=== PATIENT | female | born 1960 | race Caucasian/White ===

== ENCOUNTER 2017-05-25 13:59 | Emergency (ER) | payer BC ==
[~2017-05-25] VITALS: Ht 165.1 cm; Wt 100.0 kg
[~2017-05-25 13:59] MED LIST: ACET325T33; ALPR0.5T6 PO; AMLO-145 PO; ASPI-535 PO; ATEN-51 PO; CALC500T12 PO; CHOL50009 PO; DICL75TA2 PO; DOCU100T PO; FENO160T13 PO; FOLI-49 PO; GABA300C16 PO; GLYB5TAB3 PO; HYDR-3010 PO; HYDR-3498 PO; LEVO88TA3 PO; LORA-408 PO; MAG355OR38 PO; MELO-109 PO; METF500T4 PO; MILN50TA PO; OMEP40CA6 PO; PARO40TA79 PO; RANI150C11 PO; SUCR1TAB56 PO; TRAM50TA2 PO; WARF5TAB72 PO
[2017-05-25 14:05] VITALS: Ht 165.1 cm; Wt 100.0 kg
[2017-05-25] MEDS ORDERED: VITA400C41 PO (14:39)
[2017-05-25] MEDS ORDERED: PRAV80TA27 PO (14:40)
[2017-05-25] MEDS ORDERED: FENO145T19 PO (14:40)
[2017-05-25] MEDS ORDERED: LEVO88TA3 PO (14:40)
[2017-05-25] MEDS ORDERED: RANI150T5 PO (14:41)
[2017-05-25] MEDS ORDERED: ATEN-51 PO (14:41)
[2017-05-25] MEDS ORDERED: METF500T4 PO (14:41)
[2017-05-25] MEDS ORDERED: CALC-277 PO (14:43)
[2017-05-25] MEDS ORDERED: WARF10TA PO (14:43)
[2017-05-25] MEDS ORDERED: GABA300C16 PO (14:44)
[2017-05-25] MEDS ORDERED: GLYB5TAB3 PO (14:44)
[2017-05-25] MEDS ORDERED: AMLO5TAB4 PO (14:45)
[2017-05-25] MEDS ORDERED: FAMO40TA52 PO (14:45)
[2017-05-25] MEDS ORDERED: LORAZEPAM 2 MG INJ IM ONE (15:00)
[2017-05-25] MEDS ORDERED: IBUPROFEN 600 MG TAB PO ONE (15:00)
--- NOTE | 2017-05-25 15:04 | RADRPT ---
PROCEDURE: XR Chest. CLINICAL INDICATION: Shortness of breath. TECHNIQUE: Single frontal view. COMPARISON: 11/18/2015. FINDINGS: The lungs are clear. The heart size is normal. There is no pleural effusion. There is no pneumothorax. IMPRESSION: 1. Normal chest radiograph. 2. No change from 11/18/2015. RPTAT: QQ .Levar Patricio MD, MD Date Time Electronically viewed and signed by .Levar Patricio MD, MD on 05/25/2017 15:04 .R/
[2017-05-25] MEDS ORDERED: IBUP-1542 PO (15:57)
--- NOTE | 2017-05-25 16:01 | ERD ---
ER Documentation Chief Complaint Date/Time DATE: 05/25/17 TIME: 15:59 Chief Complaint SOB SINCE YESTERDAY HPI 56-year-old woman triage or shortness of breath although upon my HPI the patient and her daughter who is at the bedside states she has bilateral lower costal margin pain which is sharp and on the left side radiates down the left arm. The pain has been constant 2 days, nonexertional and not associated with shortness of breath. The patient does suffer from intermittent chest pain and intermittent shortness of breath which usually resolves spontaneously. She has had no cough, no calf or leg swelling, no fevers or chills, no vomiting or diarrhea. ROS All systems reviewed and are negative except as per history of present illness. Medications Home Meds Active Scripts Ibuprofen* (Ibuprofen*) 600 Mg Tablet, 600 MG PO Q8 for PAIN AND/OR INFLAMMATION , #30 TAB Prov:JOURDAN WALSH MD 05/25/17 Reported Medications Amlodipine Besylate* (Norvasc*) 5 Mg Tablet, 5 MG PO DAILY, TAB 05/25/17 Famotidine* (Famotidine*) 40 Mg Tablet, 40 MG PO DAILY, #30 TAB 05/25/17 Gabapentin* (Gabapentin*) 300 Mg Capsule, 300 MG PO TID, #90 CAP 05/25/17 Glyburide* (Glyburide*) 5 Mg Tablet, 5 MG PO BID, #60 TAB 05/25/17 Calcium Carbonate/Vitamin D3 ([place] 500 MG + VIT D TB) 1 Each Tablet, 1 EACH PO BID, TAB 05/25/17 Warfarin Sodium* (Coumadin*) 10 Mg Tablet, 10 MG PO DAILY, TAB TAKE 1TAB FOR 2 DAYS AND AFTER 1/2 TABS DAILY 05/25/17 Atenolol* (Atenolol*) 25 Mg Tablet, 25 MG PO DAILY, #30 TAB 05/25/17 Metformin Hcl* (Metformin Hcl*) 500 Mg Tablet, 500 MG PO WITH BREAKFAST DINNE, # 60 TAB 05/25/17 Ranitidine Hcl* (Ranitidine Hcl*) 150 Mg Tablet, 150 MG PO Q12, #60 TAB 05/25/17 Levothyroxine Sodium* (Levothyroxine Sodium*) 88 Mcg Tablet, 88 MCG PO BEFORE BREAKFAST, #30 TAB 05/25/17 Pravastatin Sodium* (Pravastatin Sodium*) 80 Mg Tablet, 80 MG PO DAILY, TAB 05/25/17 Fenofibrate Nanocrystallized* (Fenofibrate*) 145 Mg Tablet, 145 MG PO DAILY, TAB 05/25/17 Vitamin E Mixed* (Vitamin E*) 400 Unit Capsule, 800 UNIT PO DAILY, CAP 05/25/17 Discontinued Reported Medications Warfarin Sodium* (Coumadin*) 5 Mg Tablet, 5 MG PO DAILY, TAB 11/18/15 Omeprazole* (Omeprazole*) 40 Mg Capsule.dr, 40 MG PO DAILY, #30 CAP 11/18/15 Paroxetine Hcl* (Paroxetine*) 40 Mg Tablet, 40 MG PO DAILY, TAB 11/18/15 Hydrocodone Bit-Acetaminophen* (Hydrocodone-APAP*) 5-325 Tablet, 1 TAB PO Q12 Y for PAIN LEVEL 1-5, TAB 07/13/14 Meloxicam* (Meloxicam*) 7.5 Mg Tablet, 7.5 MG PO BID, TAB 07/13/14 Hydroxyzine Hcl* (Hydroxyzine Hcl*) 10 Mg Tablet, 10 MG PO DAILY Y for ITCHING, TAB 07/13/14 Alprazolam* (Alprazolam*) 0.5 Mg Tablet, 0.5 MG PO HS Y for ANXIETY, TAB 07/13/14 Glyburide* (Glyburide*) 5 Mg Tablet, 5 MG PO BID, TAB 07/13/14 Metformin Hcl* (Metformin Hcl*) 500 Mg Tablet, 500 MG PO BID, TAB 07/13/14 Folic Acid* (Folic Acid*) 1 Mg Tablet, 1 MG PO DAILY, TAB 07/13/14 Calcium Carbonate* ([place]-500*) 1 Tab Tablet, 1 TAB PO BID, TAB 07/13/14 Fenofibrate, Micronized* (Fenofibrate*) 160 Mg Tablet, 160 MG PO DAILY, TAB 07/13/14 Gabapentin* (Gabapentin*) 300 Mg Capsule, 300 MG PO BID, CAP 07/13/14 Mag Hydrox/Al Hydrox/Simeth (Mintox Suspension) 355 Ml Oral.susp, 30 ML PO TID 07/13/14 Sucralfate* (Carafate*) 1 Gm Tab, 1 GM PO Q6, TAB 07/13/14 Cholecalciferol* (Vitamin D*) 5,000 Unit Tablet, 5000 UNIT PO DAILY, TAB 07/13/14 Docusate Sodium* (Dok*) 100 Mg Tablet, 100 MG PO BID, CAP 07/13/14 Diclofenac Sodium* (Diclofenac Sodium*) 75 Mg Tablet.dr, PO BID 10/20/11 Amlodipine Besylate* (Amlodipine Besylate*) 5 Mg Tablet, 5 MG PO DAILY 08/21/11 Atenolol* (Atenolol*) 25 Mg Tablet, 25 MG PO DAILY 08/21/11 Lorazepam (Ativan) 1 Mg Tablet, 1 MG PO TID Y FOR ANXIIETY 08/20/11 Ranitidine Hcl (Ranitidine Hcl) 150 Mg Capsule, 1 TAB PO DAILY 05/02/11 Levothyroxine Sodium* (Levothyroxine Sodium*) 88 Mcg Tablet, 1 TAB PO DAILY 05/02/11 Milnacipran Hcl (Savella) 50 Mg Tablet, 1 TAB PO BID 05/02/11 Tramadol HCl (Tramadol HCl) 50 Mg Tablet, 1 TAB PO TID 05/02/11 Aspirin Ec (Aspir 81) 81 Mg Tablet.dr, 81 TAB PO DAILY 05/02/11 Gabapentin* (Gabapentin*) 300 Mg Capsule, 1 CAP PO HS 05/02/11 Discontinued Scripts Acetaminophen* (Tylenol*) 325 Mg Tablet, 2 TAB .ROUTE Q6 Y for PAIN AND OR ELEVATED TEMP, #30 TAB Prov:JUAN PABLO CHATMAN MD 11/18/15 Allergies Allergies: Coded Allergies: No Known Drug Allergy (Verified Allergy, Unknown, 05/25/17) PMhx/Soc Recurrent chest pain, anxiety, hypertension, diabetes, depression, hypothyroidism, gastroesophageal reflux disease, obesity History of Surgery: Yes (thyroid, cancer surgery) Anesthesia Reaction: No Hx Neurological Disorder: No Hx Respiratory Disorders: No Hx Cardiac Disorders: Yes (HTN) Hx Psychiatric Problems: No Hx Miscellaneous Medical Probl: Yes (thyroid disorder, diabetes) Hx Alcohol Use: No Hx Substance Use: No Hx Tobacco Use: No FmHx Family History: No diabetes Physical Exam Vitals Vital Signs Date Time Temp Pulse Resp B/P Pulse Ox O2 Delivery O2 Flow Rate FiO2 05/25/17 17:05 98.1 76 16 133/74 96 Room Air 05/25/17 14:05 98.1 80 20 153/70 97 Physical Exam GENERAL: Well-developed, well-nourished, appears anxious HEENT: Moist mucous membranes, pink conjunctiva, no cervical spine tenderness or step-off deformities, no goiter, no jaundice or icterus, extraocular movements intact without pain. No submandibular induration, and no pharyngeal erythema NEURO: Alert and oriented 3, cranial nerves II through XII intact bilaterally, pupils equal round reactive to light, no focal deficits or facial asymmetry, sensation intact distally Strength 5/5 in upper and lower extremities bilaterally CARDIAC: Regular rate and rhythm, no murmurs rubs or gallops LUNGS: Clear bilaterally no wheezing crackles or stridor ABDOMEN: Soft nontender, no guarding, no rigidity, no rebound, no psoas sign no obturator sign. Normoactive bowel sounds SKIN: Warm and dry to touch, no abrasions, contusions, or hematomas, no lacerations, no ecchymosis, no target lesions, and without ulcers EXTREMITIES: No clubbing cyanosis or edema, calves are bilaterally symmetrical, no Homans sign, no popliteal cord sign. 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 One AP view of the chest performed, read by me reveals no acute infiltrates, normal mediastinum, sharp costophrenic and cardiac borders, no air under the diaphragm. Otherwise unremarkable chest x-ray. EKG performed, read by me: 80 bpm, normal sinus rhythm, normal axis, no acute ST segment changes, narrow QRS complex, with good R-wave progression in precordial leads. Troponin was negative. I administered lorazepam 0.5 mg intramuscular injection and ibuprofen 600 mg p.o. Symptoms resolved. Differential diagnoses considered, included but not limited to acute coronary syndrome, pulmonary embolism, aortic dissection, abdominal aortic aneurysm, sepsis, stroke, meningitis, encephalitis, pneumonia, appendicitis, cholecystitis , bowel obstruction, pyelonephritis, nephrolithiasis, cystitis, as well as metabolic, hematologic, and electrolyte abnormalities. As well as abscess, cellulitis, fractures, and dislocations. Patient feels much better at this time, and vital signs are normal, symptoms have improved. I did give strict instructions to return to the ED if symptoms continue or worsen, patient will otherwise follow-up with primary care physician. Patient understood instructions and agreed to plan. Disclaimer: Inadvertent spelling and grammatical errors are likely due to EHR/ dictation software use and do not reflect on the overall quality of patient care. Also, please note that the electronic time recorded on this note does not necessarily reflect the actual time of the patient encounter. Departure Diagnosis: Primary Impression: Chest wall pain Additional Impression: Chronic pain syndrome Condition: Good Patient Instructions: Chest Wall Pain, Costochondritis JOURDAN WALSH MD May 25, 2017 16:01
[2017-05-25 17:05] VITALS: BP 133/74; PULSE 76; RESP 16; TEMP 98.1
== END 2017-05-25 17:05 | disposition home or self-care (01) ==
LOC: E/R 13:59
DX: R07.89 Other chest pain (principal); G89.4 Chronic pain syndrome; I10 Essential (primary) hypertension; E11.9 Type 2 diabetes mellitus without complications; E03.9 Hypothyroidism, unspecified; E66.9 Obesity, unspecified; Z68.36 Body mass index [BMI] 36.0-36.9, adult; Z85.850 Personal history of malignant neoplasm of thyroid; Z79.82 Long term (current) use of aspirin; Z79.84 Long term (current) use of oral hypoglycemic drugs; Z79.01 Long term (current) use of anticoagulants
CPT/HCPCS: 71010; 84484; 93005; 96372; J2060; Z7502; Z7610

== ENCOUNTER 2017-06-28 21:25 | Emergency (ER) | payer BC ==
[~2017-06-28] VITALS: Ht 165.1 cm; Wt 100.0 kg
[~2017-06-28 21:25] MED LIST changes: -ACET325T33; -ALPR0.5T6 PO; -AMLO-145 PO; +AMLO5TAB4 PO; -ASPI-535 PO; +CALC-277 PO; -CALC500T12 PO; -CHOL50009 PO; -DICL75TA2 PO; -DOCU100T PO; +FAMO40TA52 PO; +FENO145T19 PO; -FENO160T13 PO; -FOLI-49 PO; -HYDR-3010 PO; -HYDR-3498 PO; +IBUP-1542 PO; -LORA-408 PO; -MAG355OR38 PO; -MELO-109 PO; -MILN50TA PO; -OMEP40CA6 PO; -PARO40TA79 PO; +PRAV80TA27 PO; -RANI150C11 PO; +RANI150T5 PO; -SUCR1TAB56 PO; -TRAM50TA2 PO; +VITA400C41 PO; +WARF10TA PO; -WARF5TAB72 PO
[2017-06-28 21:31] VITALS: Ht 165.1 cm; Wt 100.0 kg
[2017-06-28] MEDS ORDERED: SOD CHLORIDE 0.9% 500 ML IV STA (23:19)
[2017-06-28] MEDS ORDERED: ONDANSETRON 4 MG INJ IV STA (23:19)
[2017-06-28] MEDS ORDERED: morphine 4 MG/ML VIAL IV STA (23:19)
[2017-06-29 00:05] LABS: BASOPHILS % 0.2 % (0.0-2.0); EOSINOPHILS # 0.2 10^3/ul (0.0-0.5); EOSINOPHILS % 2.8 % (0.0-7.0); HEMATOCRIT 31.4 % (37.0-47.0); HEMOGLOBIN 10.5 g/dl (12.0-16.0); LYMPHOCYTES # 1.8 10^3/ul (0.8-2.9); LYMPHOCYTES % 30.9 % (15.0-51.0); MEAN CORPUSCULAR HEMOGLOBIN 29.9 pg (29.0-33.0); MEAN CORPUSCULAR HGB CONC 33.4 g/dl (32.0-37.0); MEAN CORPUSCULAR VOLUME 89.5 fl (82.0-101.0); MEAN PLATELET VOLUME 11.4 fl (7.4-10.4); MONOCYTE # 0.6 10^3/ul (0.3-0.9); MONOCYTES % 9.9 % (0.0-11.0); NEUTROPHIL # 3.2 10^3/ul (1.6-7.5); NEUTROPHILS % 55.7 % (39.0-77.0); PLATELET COUNT 205 10^3/UL (140-415); RED BLOOD COUNT 3.51 10^6/ul (4.20-5.40); RED CELL DISTRIBUTION WIDTH 13.3 % (11.5-14.5); WHITE BLOOD COUNT 5.7 10^3/ul (4.8-10.8)
[2017-06-29 00:21] LABS: PT RATIO 5.3
[2017-06-29 00:25] LABS: ALBUMIN 4.2 g/dl (3.3-4.9); ALBUMIN/GLOBULIN RATIO 1.31; BILIRUBIN,INDIRECT 0.1 mg/dl (0-1.1); BILIRUBIN,TOTAL 0.1 mg/dl (0.2-1.3); CALCIUM 9.7 mg/dl (8.4-10.2); CREATININE 0.79 mg/dl (0.44-1.00); POTASSIUM 3.7 mmol/L (3.5-5.1); TOTAL PROTEIN 7.4 g/dl (6.1-8.1)
[2017-06-29] MEDS ORDERED: MELO-110 PO (00:49)
[2017-06-29] MEDS ORDERED: CHOL500010 PO (00:49)
[2017-06-29 00:53] LABS: PROTIME 68.4 Sec (12.2-14.2)
[2017-06-29 00:54] LABS: INR 7.94; PARTIAL THROMBOPLASTIN TIME 103.9 Sec (25.0-35.0)
[2017-06-29] MEDS ORDERED: morphine 4 MG/ML VIAL IV STA (01:56)
[2017-06-29] MEDS ORDERED: PHYTONADIONE (1 MG/ML PO SYG) PO ONE (02:00)
[2017-06-29] MEDS ORDERED: HYDR-906 PO (03:42)
--- NOTE | 2017-06-29 03:51 | ERD ---
ER Documentation Chief Complaint Date/Time DATE: 06/29/17 TIME: 03:46 Chief Complaint c/o neck, left arm, left leg pain with bruising. On Coumadin HPI This 56-year-old female comes in with her daughter for having pain and bruising in various parts of the left side of her body. She has had no specific trauma no falls, no known trauma. However she does have bruises. She is taking Coumadin for pulmonary embolism that she had 9 months ago. She has no current shortness of breath. ROS All systems reviewed and are negative except as per history of present illness. Medications Home Meds Active Scripts Hydrocodone/Acetaminophen ([place] 5-325 Tablet) 1 Each Tablet, 1 EACH PO Q6 for PAIN, #20 TAB Prov:CATHY ROMERO DO 06/29/17 Ibuprofen* (Ibuprofen*) 600 Mg Tablet, 600 MG PO Q8 for PAIN AND/OR INFLAMMATION , #30 TAB Prov:JOURDAN WALSH MD 05/25/17 Reported Medications Meloxicam* (Mobic*) 15 Mg Tablet, 15 MG PO DAILY, #30 TAB 06/29/17 Cholecalciferol (Vitamin D3) 5,000 Unit Tablet, 5000 UNIT PO DAILY, TAB 06/29/17 Amlodipine Besylate* (Norvasc*) 5 Mg Tablet, 5 MG PO DAILY, TAB 05/25/17 Famotidine* (Famotidine*) 40 Mg Tablet, 40 MG PO DAILY, #30 TAB 05/25/17 Gabapentin* (Gabapentin*) 300 Mg Capsule, 300 MG PO TID, #90 CAP 05/25/17 Glyburide* (Glyburide*) 5 Mg Tablet, 5 MG PO BID, #60 TAB 05/25/17 Calcium Carbonate/Vitamin D3 ([place]LL 500 MG + VIT D TB) 1 Each Tablet, 1 EACH PO BID, TAB 05/25/17 Warfarin Sodium* (Coumadin*) 10 Mg Tablet, 10 MG PO DAILY, TAB TAKE 1TAB FOR 2 DAYS AND AFTER 1/2 TABS DAILY 05/25/17 Atenolol* (Atenolol*) 25 Mg Tablet, 25 MG PO DAILY, #30 TAB 05/25/17 Metformin Hcl* (Metformin Hcl*) 500 Mg Tablet, 500 MG PO WITH BREAKFAST DINNE, # 60 TAB 05/25/17 Levothyroxine Sodium* (Levothyroxine Sodium*) 88 Mcg Tablet, 88 MCG PO BEFORE BREAKFAST, #30 TAB 05/25/17 Pravastatin Sodium* (Pravastatin Sodium*) 80 Mg Tablet, 80 MG PO DAILY, TAB 05/25/17 Fenofibrate Nanocrystallized* (Fenofibrate*) 145 Mg Tablet, 145 MG PO DAILY, TAB 05/25/17 Vitamin E Mixed* (Vitamin E*) 400 Unit Capsule, 800 UNIT PO DAILY, CAP 05/25/17 Discontinued Reported Medications Ranitidine Hcl* (Ranitidine Hcl*) 150 Mg Tablet, 150 MG PO Q12, #60 TAB 05/25/17 Allergies Allergies: Coded Allergies: No Known Drug Allergy (Verified Allergy, Unknown, 05/25/17) PMhx/Soc History of Surgery: Yes (thyroid surgery) Anesthesia Reaction: No Hx Neurological Disorder: No Hx Respiratory Disorders: No Hx Cardiac Disorders: Yes (HTN) Hx Psychiatric Problems: No Hx Miscellaneous Medical Probl: Yes (diabetes) Hx Alcohol Use: No Hx Substance Use: No Hx Tobacco Use: No Smoking Status: Never smoker Physical Exam Vitals Vital Signs Date Time Temp Pulse Resp B/P Pulse Ox O2 Delivery O2 Flow Rate FiO2 06/29/17 02:58 62 16 104/65 99 Room Air 06/28/17 21:31 98.8 69 20 127/63 98 Physical Exam Const: [] Mild distress Head: Atraumatic Eyes: Normal Conjunctiva, EOMI, PRL ENT: Normal External Ears, Nose and Mouth. Neck: Full range of motion..~ No meningismus. Left upper trapezius muscle spasm, no paraspinal muscle tenderness or midline tenderness Resp: Clear to auscultation bilaterally Cardio: Regular rate and rhythm, no murmurs Abd: Soft, non tender, non distended. Normal bowel sounds Skin: Bruising as described. Back: No midline or flank tenderness Ext: No cyanosis, or edema, left upper arm and left forearm with greenish and yellowish colored bruising. Tenderness to the areas of the bruises. No painful range of motion of the elbow wrist or hand. Left anterior quadriceps area and upper with some bruising and per purple/green discoloration. Small bruise on anterior left knee approximately 2 x 2 centimeters the cause of the patient have pain and tenderness at that location. She is able to move the leg with no difficulties. Distal pulses intact all 4 extremities. Neur: Awake and alert and oriented 3, no focal deficits Psych: Normal Mood and Affect Result Diagram: 06/28/17 2330 06/28/17 2330 Results 24 hrs Laboratory Tests Test 06/28/17 23:30 White Blood Count 5.710^3/ul Red Blood Count 3.5110^6/ul Hemoglobin 10.5g/dl Hematocrit 31.4% Mean Corpuscular Volume 89.5fl Mean Corpuscular Hemoglobin 29.9pg Mean Corpuscular Hemoglobin Concent 33.4g/dl Red Cell Distribution Width 13.3% Platelet Count 51491^3/UL Mean Platelet Volume 11.4fl Neutrophils % 55.7% Lymphocytes % 30.9% Monocytes % 9.9% Eosinophils % 2.8% Basophils % 0.2% Nucleated Red Blood Cells % 0.0/100WBC Neutrophils # 3.210^3/ul Lymphocytes # 1.810^3/ul Monocytes # 0.610^3/ul Eosinophils # 0.210^3/ul Basophils # 0.010^3/ul Nucleated Red Blood Cells # 0.010^3/ul Prothrombin Time 68.4Sec Prothrombin Time Ratio 5.3 INR International Normalized Ratio 7.94 Activated Partial Thromboplast Time 103.9Sec Sodium Level 141mmol/L Potassium Level 3.7mmol/L Chloride Level 96mmol/L Carbon Dioxide Level 28mmol/L Anion Gap 21 Blood Urea Nitrogen 13mg/dl Creatinine 0.79mg/dl Glucose Level 180mg/dl Calcium Level 9.7mg/dl Total Bilirubin 0.1mg/dl Direct Bilirubin 0.00mg/dl Indirect Bilirubin 0.1mg/dl Aspartate Amino Transf (AST/SGOT) 22IU/L Alanine Aminotransferase (ALT/SGPT) 28IU/L Alkaline Phosphatase 40IU/L Total Protein 7.4g/dl Albumin 4.2g/dl Globulin 3.20g/dl Albumin/Globulin Ratio 1.31 Current Medications Medications (Trade) Dose Ordered Sig/Jagjit Route PRN Reason Start Time Stop Time Status Last Admin Dose Admin Sodium Chloride (NS) 500 ml @ 500 mls/hr Q1H STAT IV 06/28/17 23:19 06/29/17 00:18 DC 06/29/17 00:30 Morphine Sulfate (morphine) 4 mg ONCE STAT IV 06/28/17 23:19 06/28/17 23:23 DC 06/29/17 00:29 Ondansetron HCl (Zofran Inj) 4 mg ONCE STAT IV 06/28/17 23:19 06/28/17 23:23 DC 06/29/17 00:29 Morphine Sulfate (morphine) 4 mg ONCE STAT IV 06/29/17 01:56 06/29/17 01:58 DC 06/29/17 02:28 Phytonadione (Vitamin K Soln) 10 mg ONCE ONCE PO 06/29/17 02:00 06/29/17 02:02 DC 06/29/17 02:28 Procedures/MDM Coumadin coagulopathy with easy bruising and tenderness at bruise sites. Patient has no active bleeding. When he is not in areas where I would expect internal bruising. No signs of compartment syndrome and any bruise site. Patient was given IV morphine which did diminish her pain significantly to the point she could move with comfort. INR is 7.9. Administered single 10 mg p.o. dose of vitamin K. Patient has an appointment to see her physician tomorrow I have instructed her not to take anymore Coumadin until her physician says to do so. Given return precautions the emergency room for any fall in which the patient hits her head or any trauma. Instructed the patient and the daughter to take extreme precautions that she does not fall while her INR is that high. Departure Diagnosis: Primary Impression: Bruising Additional Impression: Supratherapeutic INR Condition: Stable Patient Instructions: Contusions (Bruises) Additional Instructions: Call your primary care doctor TOMORROW for a SAME-DAY APPOINTMENT.Tell the private secretary that you were referred from this facility.Call again if your condition worsens before your appointment time. CATHY ROMERO DO Jun 29, 2017 03:50
[2017-06-29 04:12] VITALS: BP 121/72; PULSE 76; RESP 18
== END 2017-06-29 04:13 | disposition home or self-care (01) ==
LOC: E/R 21:25
DX: M79.81 Nontraumatic hematoma of soft tissue (principal); R79.1 Abnormal coagulation profile; E11.9 Type 2 diabetes mellitus without complications; I10 Essential (primary) hypertension; Z79.01 Long term (current) use of anticoagulants; Z79.84 Long term (current) use of oral hypoglycemic drugs
CPT/HCPCS: 36415; 80053; 85025; 85610; 85730; 96374; 96375; 96376; J2270; J2405; J3430; J7040; Z7502

== ENCOUNTER 2017-07-21 18:32 | Emergency (ER) | payer BC ==
[~2017-07-21] VITALS: Ht 162.6 cm; Wt 88.0 kg
[~2017-07-21 18:32] MED LIST changes: +CHOL500010 PO; +HYDR-906 PO; +MELO-110 PO; -RANI150T5 PO
[2017-07-21 18:55] VITALS: Ht 162.6 cm; Wt 88.0 kg
--- NOTE | 2017-07-21 23:39 | ERA ---
ER Documentation Chief Complaint Date/Time DATE: 07/21/17 TIME: 23:38 Chief Complaint Shortness of breath HPI The patient is a 56-year-old female, presenting to the ER because of shortness of breath, sore throat, intermittent cough for 1 day, it is worse with deep breathing. She is under a lot of stress, very emotional in the emergency department she has similar symptoms previously, denies bruit fever, chills, neck pain, chest pain with exertion or vomiting or diaphoresis, denies abdominal pain, vomiting, dysuria, diarrhea. She does not smoke nor drink, has a lot of stress in her life Past medical history: Hypertension, diabetes mellitus, hypothyroidism, depression, history of pulmonary embolism Past surgical history: Thyroid surgery ROS All systems reviewed and are negative except as per history of present illness. Medications Home Meds Active Scripts Ciprofloxacin Hcl* (Ciprofloxacin Hcl*) 500 Mg Tablet, 500 MG PO BID for 7 Days , TAB Prov:SORAIDA COOK MD 07/22/17 Hydrocodone/Acetaminophen ([place] 5-325 Tablet) 1 Each Tablet, 1 EACH PO Q6 for PAIN, #20 TAB Prov:CATHY ROMERO DO 06/29/17 Ibuprofen* (Ibuprofen*) 600 Mg Tablet, 600 MG PO Q8 for PAIN AND/OR INFLAMMATION , #30 TAB Prov:JOURDAN WALSH MD 05/25/17 Reported Medications Meloxicam* (Mobic*) 15 Mg Tablet, 15 MG PO DAILY, #30 TAB 06/29/17 Cholecalciferol (Vitamin D3) 5,000 Unit Tablet, 5000 UNIT PO DAILY, TAB 06/29/17 Amlodipine Besylate* (Norvasc*) 5 Mg Tablet, 5 MG PO DAILY, TAB 05/25/17 Famotidine* (Famotidine*) 40 Mg Tablet, 40 MG PO DAILY, #30 TAB 05/25/17 Gabapentin* (Gabapentin*) 300 Mg Capsule, 300 MG PO TID, #90 CAP 05/25/17 Glyburide* (Glyburide*) 5 Mg Tablet, 5 MG PO BID, #60 TAB 05/25/17 Calcium Carbonate/Vitamin D3 ([place] 500 MG + VIT D TB) 1 Each Tablet, 1 EACH PO BID, TAB 05/25/17 Warfarin Sodium* (Coumadin*) 10 Mg Tablet, 10 MG PO DAILY, TAB TAKE 1TAB FOR 2 DAYS AND AFTER 1/2 TABS DAILY 05/25/17 Atenolol* (Atenolol*) 25 Mg Tablet, 25 MG PO DAILY, #30 TAB 05/25/17 Metformin Hcl* (Metformin Hcl*) 500 Mg Tablet, 500 MG PO WITH BREAKFAST DINNE, # 60 TAB 05/25/17 Levothyroxine Sodium* (Levothyroxine Sodium*) 88 Mcg Tablet, 88 MCG PO BEFORE BREAKFAST, #30 TAB 05/25/17 Pravastatin Sodium* (Pravastatin Sodium*) 80 Mg Tablet, 80 MG PO DAILY, TAB 05/25/17 Fenofibrate Nanocrystallized* (Fenofibrate*) 145 Mg Tablet, 145 MG PO DAILY, TAB 05/25/17 Vitamin E Mixed* (Vitamin E*) 400 Unit Capsule, 800 UNIT PO DAILY, CAP 05/25/17 Allergies Allergies: Coded Allergies: No Known Drug Allergy (Verified Allergy, Unknown, 05/25/17) PMhx/Soc History of Surgery: Yes (thyroid surgery) Anesthesia Reaction: No Hx Neurological Disorder: No Hx Respiratory Disorders: No Hx Cardiac Disorders: Yes (HTN) Hx Psychiatric Problems: No Hx Miscellaneous Medical Probl: Yes (diabetes) Hx Alcohol Use: No Hx Substance Use: No Hx Tobacco Use: No Physical Exam Vitals Vital Signs Date Time Temp Pulse Resp B/P Pulse Ox O2 Delivery O2 Flow Rate FiO2 07/22/17 03:30 98.9 68 20 103/59 97 Room Air 07/21/17 23:27 98.9 62 20 124/64 99 Room Air 07/21/17 18:55 98.9 69 20 130/77 97 Physical Exam Const: No acute distress.Very anxious Head: Atraumatic. Eyes: Normal Conjunctiva. ENT: Normal External Ears, Nose and Mouth. oropharynx is within normal limits Neck: Full range of motion. No meningismus. Resp: Clear to auscultation bilaterally. Cardio: Regular rate and rhythm. Abd: Soft, non distended, normal bowel sounds, non tender. Skin: No petechiae or rashes. Back: No midline or flank tenderness. Ext: No cyanosis, or edema. Neur: Awake and alert. No focal deficit Psych: Normal Mood and Affect. Result Diagram: 07/21/17 2345 07/21/17 2349 Results 24 hrs Laboratory Tests Test 07/21/17 23:45 07/22/17 01:17 White Blood Count 6.910^3/ul Red Blood Count 3.9610^6/ul Hemoglobin 11.8g/dl Hematocrit 36.0% Mean Corpuscular Volume 90.9fl Mean Corpuscular Hemoglobin 29.8pg Mean Corpuscular Hemoglobin Concent 32.8g/dl Red Cell Distribution Width 13.4% Platelet Count 70954^3/UL Mean Platelet Volume 11.4fl Neutrophils % 53.8% Lymphocytes % 36.4% Monocytes % 7.7% Eosinophils % 1.3% Basophils % 0.4% Nucleated Red Blood Cells % 0.0/100WBC Neutrophils # (Manual) 3.710^3/ul Lymphocytes # 2.510^3/ul Monocytes # 0.510^3/ul Eosinophils # 0.110^3/ul Basophils # 0.010^3/ul Nucleated Red Blood Cells # 0.010^3/ul Prothrombin Time 24.1Sec Prothrombin Time Ratio 1.9 INR International Normalized Ratio 2.14 Activated Partial Thromboplast Time 37.2Sec Sodium Level 139mmol/L Potassium Level 4.2mmol/L Chloride Level 98mmol/L Carbon Dioxide Level 28mmol/L Anion Gap 17 Blood Urea Nitrogen 18mg/dl Creatinine 0.85mg/dl Glucose Level 201mg/dl Calcium Level 10.2mg/dl Troponin I < 0.012ng/ml Bedside Urine pH (LAB) 5.0 Bedside Urine Protein (LAB) Negative Bedside Urine Glucose (UA) Negative Bedside Urine Ketones (LAB) Negative Bedside Urine Blood Negative Bedside Urine Nitrite (LAB) Negative Bedside Urine Leukocyte Esterase (L 1+ Current Medications Medications (Trade) Dose Ordered Sig/Jagjit Route PRN Reason Start Time Stop Time Status Last Admin Dose Admin Alprazolam (Xanax) 0.5 mg ONCE ONCE PO 07/22/17 01:00 07/22/17 01:01 DC 07/22/17 01:03 Procedures/[place] [id number] Radiology Main Line: [phone] DIAGNOSTIC IMAGING REPORT Patient: ROBERTO AVLAREZ : 1960 Age: 56 Sex: F MR #: [id number] DOS: 07/21/17 1266 Ordering MD: SORAIDA COOK MD Location: E/R Room/Bed: PROCEDURE: Portable chest x-ray. CLINICAL INDICATION: Chest pain. TECHNIQUE: Portable AP view of the chest. COMPARISON: 05/25/2017 FINDINGS: No pulmonary edema or conolidation is identified. The cardiac silhouette is magnified. There are aortic calcifications. No pleural effusion is seen. There is no pneumothorax. IMPRESSION: 1. No evidence of acute cardiopulmonary disease. 2. Aortic atherosclerosis. RPTAT: HTAR .Servando Alford MD, MD Date Time Electronically viewed and signed by .Servando Alford MD, MD on 07/22/2017 02:09 .R/ CC: SORAIDA COOK MD EKG: At 1857 hrs. Read by emergency physician Rate/Rhythm: Normal Sinus Rhythm 70 beats/min QRS, ST, T-waves: No ST elevation, no T inversion, low voltage Impression: Abnormal EKG EKG: At 1:01 AM Read by emergency physician Rate/Rhythm: Normal Sinus Rhythm 61 beats/min QRS, ST, T-waves: No ST elevation, no T inversion Impression: Normal EKG . MEDICAL MAKING DECISION: The patient is a 56-year-old female, presenting with acute anxiety, acute cystitis. She was treated with Xanax 0.5 mg p.o. for acute anxiety with good response. X The differential diagnoses considered include but are not limited to acute coronary syndrome, acute myocardial infarction, pericarditis, pulmonary embolism , aortic dissection, pneumonia, pleural effusion, pneumothorax, GERD, chest wall pain. Departure Diagnosis: Primary Impression: Anxiety Additional Impression: UTI (urinary tract infection) Condition: Good Comments She was discharged with Cipro I discussed the findings with the patient. I advised the patient to follow-up with the primary physician in about 1-2 days, sooner if needed and return if any concern. SORAIDA COOK MD Jul 21, 2017 23:39
[2017-07-22 00:43] LABS: BASOPHILS % 0.4 % (0.0-2.0); EOSINOPHILS # 0.1 10^3/ul (0.0-0.5); EOSINOPHILS % 1.3 % (0.0-7.0); HEMOGLOBIN 11.8 g/dl (12.0-16.0); LYMPHOCYTES # 2.5 10^3/ul (0.8-2.9); LYMPHOCYTES % 36.4 % (15.0-51.0); MEAN CORPUSCULAR HEMOGLOBIN 29.8 pg (29.0-33.0); MEAN CORPUSCULAR HGB CONC 32.8 g/dl (32.0-37.0); MEAN CORPUSCULAR VOLUME 90.9 fl (82.0-101.0); MEAN PLATELET VOLUME 11.4 fl (7.4-10.4); MONOCYTE # 0.5 10^3/ul (0.3-0.9); MONOCYTES % 7.7 % (0.0-11.0); NEUTROPHILS % 53.8 % (39.0-77.0); PLATELET COUNT 240 10^3/UL (140-415); RED BLOOD COUNT 3.96 10^6/ul (4.20-5.40); RED CELL DISTRIBUTION WIDTH 13.4 % (11.5-14.5); WHITE BLOOD COUNT 6.9 10^3/ul (4.8-10.8)
[2017-07-22 01:00] LABS: PARTIAL THROMBOPLASTIN TIME 37.2 Sec (25.0-35.0); PT RATIO 1.9
[2017-07-22] MEDS ORDERED: ALPRAZOLAM 0.25 MG TAB PO ONE (01:00)
[2017-07-22 01:08] LABS: ANION GAP 17 (8-16); BLOOD UREA NITROGEN 18 mg/dl (7-20); CALCIUM 10.2 mg/dl (8.4-10.2); CARBON DIOXIDE 28 mmol/L (21-31); CHLORIDE 98 mmol/L (97-110); CREATININE 0.85 mg/dl (0.44-1.00); GLUCOSE 201 mg/dl (70-220); POTASSIUM 4.2 mmol/L (3.5-5.1); SODIUM 139 mmol/L (135-144)
[2017-07-22 01:11] LABS: URINE BLOOD (Dip) POC Negative (NEGATIVE)
[2017-07-22 01:20] LABS: TROPONIN-I < 0.012 ng/ml (0.00-0.12)
--- NOTE | 2017-07-22 02:10 | RADRPT ---
PROCEDURE: Portable chest x-ray. CLINICAL INDICATION: Chest pain. TECHNIQUE: Portable AP view of the chest. COMPARISON: 05/25/2017 FINDINGS: No pulmonary edema or conolidation is identified. The cardiac silhouette is magnified. There are ao rtic calcifications. No pleural effusion is seen. There is no pneumothorax. IMPRESSION: 1. No evidence of acute cardiopulmonary disease. 2. Aortic atherosclerosis. RPTAT: HTAR .Servando Alford MD, MD Date Time Electronically viewed and signed by .Servando Alford MD, MD on 07/22/2017 02:09 .R/
[2017-07-22] MEDS ORDERED: CIPR500T4 PO (03:24)
[2017-07-22 03:30] VITALS: BP 103/59; PULSE 68; RESP 20; TEMP 98.9
[2017-07-22 03:30] LABS: PROTIME 24.1 Sec (12.2-14.2)
[2017-07-22 03:31] LABS: INR 2.14
== END 2017-07-22 03:46 | disposition home or self-care (01) ==
LOC: E/R 18:32
DX: F41.9 Anxiety disorder, unspecified (principal); N39.0 Urinary tract infection, site not specified; I10 Essential (primary) hypertension; E11.9 Type 2 diabetes mellitus without complications; E03.9 Hypothyroidism, unspecified; Z79.01 Long term (current) use of anticoagulants; Z79.84 Long term (current) use of oral hypoglycemic drugs
CPT/HCPCS: 36415; 71010; 80048; 81003; 84484; 85025; 85610; 85730; 93005; Z7502; Z7610

== ENCOUNTER 2017-11-19 19:51 | Emergency (ER) | END 2017-11-20 02:35 | disposition home or self-care (01) ==

== ENCOUNTER 2018-01-27 01:17 | Emergency (ER) | END 2018-01-27 07:33 | disposition home or self-care (01) ==

== ENCOUNTER → 2018-11-14 | Outpatient (CLI) | END | disposition home or self-care (01) ==

== ENCOUNTER 2019-01-13 13:53 | Emergency (ER) | payer BC ==
[~2019-01-13] VITALS: Ht 162.6 cm; Wt 87.2 kg
[~2019-01-13 13:53] MED LIST changes: +ACET500C5 PO; -CALC-277 PO; +CALC1TAB93 PO; +CIPR500T4 PO; +FAMO40TA5 PO; -FAMO40TA52 PO; -FENO145T19 PO; +FENO145T37 PO; +HYDR-4011 PO; -HYDR-906 PO; -MELO-110 PO; +MELO15TA30 PO; +METF500T24 PO; -METF500T4 PO; +TRAM50TA2 PO
[2019-01-13 13:54] VITALS: Ht 162.6 cm; Wt 87.2 kg
[2019-01-13] MEDS ORDERED: HYDROmorphONE 1 MG/ML SYG IV STA ×2 (14:22→17:09)
[2019-01-13] MEDS ORDERED: SOD CHLORIDE 0.9% 1,000 ML IV STA (14:22)
[2019-01-13] MEDS ORDERED: DIPHENHYDRAMINE 50 MG INJ IV STA (14:22)
[2019-01-13] MEDS ORDERED: METOCLOPRAMIDE 10 MG INJ IV STA (14:22)
--- NOTE | 2019-01-13 14:26 | ERD ---
ER Documentation Chief Complaint Chief Complaint CP with left side face/body numbness x yesterday HPI This is a 58-year-old female who said yesterday morning she developed some substernal chest pressure lasted about 5 minutes. She then subsequently developed a left-sided retro-orbital pounding headache with photophobia and left arm and leg tingling and weakness. No speech change no visual change no swallowing difficulty. She has a history of a heart attack but no migraine history or stroke history. She has hypertension and diabetes ROS All systems reviewed and are negative except as per history of present illness. Medications Home Meds Reported Medications Sitagliptin Phos/Metformin HCl (Janumet 50-500 mg Tablet) 1 Each Tablet, 1 EACH PO BID, TAB 01/13/19 Aspirin (Low Dose Aspirin) 81 Mg Tablet.dr, 81 MG PO DAILY, #30 TAB 01/13/19 Lansoprazole* (Lansoprazole*) 15 Mg Capsule.dr, 15 MG PO DAILY, CAP 01/13/19 Lisinopril* (Lisinopril*) 10 Mg Tablet, 10 MG PO DAILY, #30 TAB 01/13/19 Folic Acid* (Folic Acid*) 1 Mg Tablet, 1 MG PO DAILY, TAB 01/13/19 Tolterodine Tartrate* (Detrol LA*) 4 Mg Cap.sr.24h, 4 MG PO DAILY, #30 CAP 01/13/19 Meloxicam* (Mobic*) 15 Mg Tablet, 15 MG PO DAILY, #30 TAB 01/13/19 Levothyroxine Sodium* (Levoxyl*) 88 Mcg Tablet, 88 MCG PO BEFORE BREAKFAST, #30 TAB 01/13/19 Gabapentin* (Gabapentin*) 300 Mg Capsule, 300 MG PO TID, #90 CAP 01/13/19 Calcium Carbonate/Vitamin D3 ([place]ysco 500+D Tablet) 1 Each Tablet, 1 EACH PO BID, TAB 01/13/19 Amlodipine Besylate* (Norvasc*) 5 Mg Tablet, 5 MG PO DAILY, TAB 01/13/19 Discontinued Reported Medications Meloxicam* (Mobic*) 15 Mg Tablet, 15 MG PO DAILY, #30 TAB 06/29/17 Cholecalciferol (Vitamin D3) 5,000 Unit Tablet, 5000 UNIT PO DAILY, TAB 06/29/17 Amlodipine Besylate* (Norvasc*) 5 Mg Tablet, 5 MG PO DAILY, TAB 7/6/17 Famotidine* (Famotidine*) 40 Mg Tablet, 40 MG PO DAILY, #30 TAB 05/25/17 Gabapentin* (Gabapentin*) 300 Mg Capsule, 300 MG PO TID, #90 CAP 05/25/17 Glyburide* (Glyburide*) 5 Mg Tablet, 5 MG PO BID, #60 TAB 05/25/17 Calcium Carbonate/Vitamin D3 (OYSTER SHELL 500 MG + VIT D TB) 1 Each Tablet, 1 EACH PO BID, TAB 05/25/17 Warfarin Sodium* (Coumadin*) 10 Mg Tablet, 10 MG PO DAILY, TAB TAKE 1TAB FOR 2 DAYS AND AFTER 1/2 TABS DAILY 05/25/17 Atenolol* (Atenolol*) 25 Mg Tablet, 25 MG PO DAILY, #30 TAB 05/25/17 Metformin Hcl* (Metformin Hcl*) 500 Mg Tablet, 500 MG PO WITH BREAKFAST DINNE, #60 TAB 05/25/17 Levothyroxine Sodium* (Levothyroxine Sodium*) 88 Mcg Tablet, 88 MCG PO BEFORE BREAKFAST, #30 TAB 05/25/17 Pravastatin Sodium* (Pravastatin Sodium*) 80 Mg Tablet, 80 MG PO DAILY, TAB 05/25/17 Fenofibrate Nanocrystallized* (Fenofibrate*) 145 Mg Tablet, 145 MG PO DAILY, TAB 05/25/17 Vitamin E Mixed* (Vitamin E*) 400 Unit Capsule, 800 UNIT PO DAILY, CAP 05/25/17 Discontinued Scripts Tramadol HCl (Tramadol HCl) 50 Mg Tablet, 50 MG PO Q6 PRN for PAIN, #20 TAB Prov:GUI KIRBY NP 01/27/18 Acetaminophen* (Tylophen*) 500 Mg Capsule, 1 CAP PO Q6H PRN for PAIN AND OR ELEVATED TEMP, #20 CAP Prov:GUI KIRBY [employer]IRS[employer]ING STUDDER 01/27/18 Ciprofloxacin Hcl* (Ciprofloxacin Hcl*) 500 Mg Tablet, 500 MG PO BID for 7 Days, TAB Prov:SORAIDA COOK MD 07/22/17 Hydrocodone/Acetaminophen (Boyd 5-325 Tablet) 1 Each Tablet, 1 EACH PO Q6 for PAIN, #20 TAB Prov:CATHY ROMERO DO 06/29/17 Ibuprofen* (Ibuprofen*) 600 Mg Tablet, 600 MG PO Q8 for PAIN AND/OR INFLAMMATION, #30 TAB Prov:JOURDAN WALSH MD 05/25/17 Allergies Allergies: Coded Allergies: No Known Drug Allergy (Verified Allergy, Unknown, 01/13/19) PMhx/Soc History of Surgery: Yes (thyroid surgery) Anesthesia Reaction: No Hx Neurological Disorder: No Hx Respiratory Disorders: No Hx Cardiac Disorders: Yes (HTN) Hx Psychiatric Problems: No Hx Miscellaneous Medical Probl: Yes (diabetes, BLOOD CLOTS) Hx Alcohol Use: No Hx Substance Use: No Hx Tobacco Use: No Smoking Status: Never smoker FmHx Family History: No coronary disease Physical Exam Vitals Vital Signs Date Temp Pulse Resp B/P (MAP) Pulse Ox O2 O2 Flow FiO2 Time Delivery Rate 01/13/19 Nasal 14:25 Cannula 01/13/19 99.5 95 20 140/68 98 Room Air 14:21 (92) 01/13/19 100.0 97 20 141/65 98 13:54 (90) Physical Exam Const: Well-developed, well-nourished Head: Atraumatic, normocephalic Eyes: Normal Conjunctiva, PERRLA, EOMI, normal sclera, no nystagmus ENT: Normal External Ears, Nose and Mouth, moist mucus membranes. Neck: Full range of motion. No meningismus, no lymphadenopathy. Resp: Clear to auscultation bilaterally, no wheezing, rhonchi, rales Cardio: Regular rate and rhythm, no murmurs, S1 S2 present Abd: Soft, non tender x 4, non distended. Normal bowel sounds, no guarding or rebound, no pulsitile abdominal masses or bruits Skin: No petechiae or rashes, no ecchymosis , no maculopapular rash Back: No midline or flank tenderness Ext: No cyanosis, or edema, FROM x 4, normal inspection, n eurovascularly intact x 4 Neur: Awake and alert, right arm and leg strength 5 out of 5, left arm and leg has subjective heaviness, 4 out of 5, subjective tingling left arm leg and face, cerebellum intact Psych: Normal Mood and Affect Result Diagram: 01/13/19 1426 01/13/19 1426 Results 24 hrs Laboratory Tests Test 01/13/19 14:26 White Blood Count 5.7 10^3/ul Red Blood Count 4.43 10^6/ul Hemoglobin 12.7 g/dl Hematocrit 38.9 % Mean Corpuscular Volume 87.8 fl Mean Corpuscular Hemoglobin 28.7 pg Mean Corpuscular Hemoglobin Concent 32.6 g/dl Red Cell Distribution Width 13.2 % Platelet Count 255 10^3/UL Mean Platelet Volume 11.2 fl Immature Granulocytes % 0.300 % Neutrophils % 66.1 % Lymphocytes % 25.1 % Monocytes % 6.8 % Eosinophils % 1.4 % Basophils % 0.3 % Nucleated Red Blood Cells % 0.0 /100WBC Immature Granulocytes # 0.020 10^3/ul Neutrophils # 3.8 10^3/ul Lymphocytes # 1.4 10^3/ul Monocytes # 0.4 10^3/ul Eosinophils # 0.1 10^3/ul Basophils # 0.0 10^3/ul Nucleated Red Blood Cells # 0.0 10^3/ul Prothrombin Time 12.1 Sec Prothrombin Time Ratio 0.9 INR International Normalized Ratio 0.89 Activated Partial Thromboplast Time 26.9 Sec Sodium Level 143 mmol/L Potassium Level 4.5 mmol/L Chloride Level 102 mmol/L Carbon Dioxide Level 28 mmol/L Anion Gap 13 Blood Urea Nitrogen 10 mg/dl Creatinine 0.62 mg/dl Est Glomerular Filtrat Rate mL/min > 60 mL/min Glucose Level 201 mg/dl Calcium Level 9.9 mg/dl Total Bilirubin 0.2 mg/dl Direct Bilirubin 0.00 mg/dl Indirect Bilirubin 0.2 mg/dl Aspartate Amino Transf (AST/SGOT) 45 IU/L Alanine Aminotransferase (ALT/SGPT) 56 IU/L Alkaline Phosphatase 62 IU/L Troponin I < 0.012 ng/ml Total Protein 8.8 g/dl Albumin 4.7 g/dl Globulin 4.10 g/dl Albumin/Globulin Ratio 1.14 Current Medications Medications Dose Sig/Jagjit Start Time Status Last (Trade) Ordered Route PRN Stop Time Admin Dose Reason Admin Sodium 1,000 ml @ Q1H STAT 01/13/19 DC 01/13/19 Chloride 1,000 mls/hr IV 14:22 14:30 01/13/19 15:21 10 mg ONCE STAT 01/13/19 DC 01/13/19 Metoclopramid IV 14:22 14:31 e HCl 01/13/19 14:25 (Reglan) 1 mg ONCE STAT 01/13/19 DC 01/13/19 Hydromorphone IV 14:22 14:30 HCl 01/13/19 14:25 (Dilaudid) 25 mg ONCE STAT 01/13/19 DC 01/13/19 Diphenhydrami IV 14:22 14:30 ne HCl 01/13/19 14:25 (Benadryl) Procedures/MDM Patient: ROBERTO ALVAREZ : 1960 Age: 58 Sex: F MR #: [id number] DOS: 01/13/19 1422 Ordering MD: LETICIA CARY DO Location: E/R Room/Bed: PROCEDURE: CT head CLINICAL INDICATION: Headaches TECHNIQUE: Contiguous 2.5 mm axial images were obtained from the vertex to the skull base. No intravenous contrast was administered. The calculated dose length product (DLP) = 634.23 mGy-cm. The CTDlvol = 38.10 mGy. One or more of the following dose reduction techniques were used: Automated exposure control, adjustment of the mA and or KV according to patient size, or use of iterative reconstruction technique. DICOM images are available. COMPARISON: 08/08/2013 FINDINGS: There is no evidence of acute intracranial hemorrhage or acute territorial i nfarct. No mass or mass effect is seen on this noncontrast study. There is age appropriate cortical and central atrophy. Ventricles are normal in size and configuration. Minimal small vessel ischemic changes in the periventricular white matter. Visualized paranasal sinuses are normally aerated. The bony calvarium is unremarkable. IMPRESSION: 1. No acute intracranial hemorrhage or acute territorial infarct. 2. Age related atrophy and mild small vessel ischemic change RPTAT: HH .Ulises Sanchez MD, Date Time Electronically viewed and signed by .Ulises Sanchez MD, on 01/13/2019 16:05 .W/ CC: LETICIA CARY DO [id number] [id number] DOS: 01/13/19 1422 Ordering MD: LETICIA CARY DO Location: E/R Room/Bed: PROCEDURE: XR Chest. CLINICAL INDICATION: chest pain TECHNIQUE: Single frontal view of the chest was obtained COMPARISON: 11/18/15 FINDINGS: The heart and mediastinum are within normal limits. The lungs are clear. There is no pleural effusion or pneumothorax. RPTAT: AA IMPRESSION: No acute disease. .Dawood Cerna MD, MD Date Time Electronically viewed and signed by .Dawood Cerna MD, MD on 01/13/2019 14:50 .S/ CC: LETICIA CARY DO [id number] EKG: Rate/Rhythm: Normal sinus rhythm with nonspecific ST changes QRS, ST, QT: NORMAL OR, QRS, QT] Impression: Abnormal EKG After headache cocktail the patient was reevaluated and said that her headache is much better, is almost gone she said that her left-sided symptoms have completely resolved and she is back at baseline. Spoke with her primary care physician on the phone and she said that she is okay to be discharged home and she will follow-up with her tomorrow in the office. She is to the patient has frequent vague complaints and is always in the office and has a lot of emotional and psychological issues. I feel the patient has had a complex migraine as her symptoms are much better with headache cocktail and I do not feel this is an acute stroke. I told the primary care physician about the chest pain she said that she is been worked up many times in the past and she will see her tomorrow to discuss it further. Patient feels much better at this time, and vital signs are normal, symptoms have improved. I did give strict instructions to return to the ED if symptoms continue or worsen, patient will otherwise follow-up with primary care physician. Patient understood instructions and agreed to plan. Disclaimer: Inadvertent spelling and grammatical errors are likely due to EHR/dictation software use and do not reflect on the overall quality of patient care. Also, please note that the electronic time recorded on this note does not necessarily reflect the actual time of the patient encounter. Departure Diagnosis: Primary Impression: Migraine Migraine type: unspecified Status migrainosus presence: without status migrainosus Intractability: not intractable Qualified Codes: G43.909 - Migraine, unspecified, not intractable, without status migrainosus Additional Impression: Chest pain Chest pain type: unspecified Qualified Codes: R07.9 - Chest pain, unspecified Condition: Stable LETICIA CARY DO Jan 13, 2019 14:25
[2019-01-13] MEDS ORDERED: AMLO5TAB4 PO (15:17)
[2019-01-13] MEDS ORDERED: CALC1TAB79 PO (15:18)
[2019-01-13] MEDS ORDERED: GABA300C16 PO (15:18)
[2019-01-13] MEDS ORDERED: MELO15TA30 PO (15:19)
[2019-01-13] MEDS ORDERED: LEVO88TA42 PO (15:19)
[2019-01-13] MEDS ORDERED: LISI10TA2 PO (15:20)
[2019-01-13] MEDS ORDERED: FOLI-49 PO (15:20)
[2019-01-13] MEDS ORDERED: TOLT4CAP PO (15:20)
[2019-01-13] MEDS ORDERED: ASPI81TA52 PO (15:21)
[2019-01-13] MEDS ORDERED: LANS15CA5 PO (15:21)
[2019-01-13] MEDS ORDERED: SITA1TAB PO (15:22)
[2019-01-13] MEDS ORDERED: IBUP-1542 PO (17:08)
[2019-01-13] MEDS ORDERED: HYDR-3980 PO (17:08)
[2019-01-13] MEDS ORDERED: ONDANSETRON 4 MG INJ IV STA (17:09)
[2019-01-13 17:39] VITALS: BP 138/80; PULSE 89; RESP 19
== END 2019-01-13 17:40 | disposition home or self-care (01) ==
LOC: E/R 13:53
DX: G43.909 Migraine, unspecified, not intractable, without status migrainosus (principal); I10 Essential (primary) hypertension; E11.9 Type 2 diabetes mellitus without complications; R94.02 Abnormal brain scan; Z79.82 Long term (current) use of aspirin; Z79.84 Long term (current) use of oral hypoglycemic drugs
CPT/HCPCS: 36415; 70450; 71045; 80053; 84484; 85025; 85610; 85730; 93005; 96374; 96375; 96376; 99285; J1170; J1200; J2405; J2765; J7030

== ENCOUNTER 2019-01-15 20:28 | Emergency (ER) | payer SELFPAY ==
[~2019-01-15] VITALS: Wt 87.9 kg
[~2019-01-15 20:28] MED LIST changes: -ACET500C5 PO; +ASPI81TA52 PO; -ATEN-51 PO; +CALC1TAB79 PO; -CALC1TAB93 PO; -CHOL500010 PO; -CIPR500T4 PO; -FAMO40TA5 PO; -FENO145T37 PO; +FOLI-49 PO; -GLYB5TAB3 PO; +HYDR-3980 PO; -HYDR-4011 PO; +LANS15CA5 PO; -LEVO88TA3 PO; +LEVO88TA42 PO; +LISI10TA2 PO; -METF500T24 PO; -PRAV80TA27 PO; +SITA1TAB PO; +TOLT4CAP PO; -TRAM50TA2 PO; -VITA400C41 PO; -WARF10TA PO
[2019-01-15 21:01] VITALS: BP 157/72; PULSE 89; RESP 20
== END 2019-01-16 01:31 | disposition left against medical advice (07) ==
LOC: E/R 20:28
DX: Z53.21 Procedure and treatment not carried out due to patient leaving prior to being seen by health care provider (principal)

== ENCOUNTER 2019-04-06 21:03 | Emergency (ER) | payer BC ==
[~2019-04-06] VITALS: Wt 79.5 kg
[2019-04-07] MEDS ORDERED: IBUPROFEN 800 MG TAB PO ONE (01:30)
[2019-04-07] MEDS ORDERED: HYDROCODONE/APAP (10/325) TAB PO ONE (01:30)
--- NOTE | 2019-04-07 02:59 | ERD ---
ER Documentation Chief Complaint Chief Complaint rib pain HPI This is a 58-year-old female who is complaining of pain to her her rib cage and her left costal sternal margin at ribs 2 3 and 4. She said the pain began when she woke up this morning and has been there all day long and has not subsided at all. She said the pain is worse when she moves and is hard to lay down because of sharp pain. She has no cough shortness of breath diaphoresis no radiation of pain fever, no weakness ROS All systems reviewed and are negative except as per history of present illness. Medications Home Meds Active Scripts Ibuprofen* (Motrin*) 600 Mg Tab, 600 MG PO Q8, #30 TAB Prov:LETICIA CARY. DO 01/13/19 Hydrocodone/Acetaminophen ([place] 10-325 Tablet) 1 Each Tablet, 1 TAB PO Q6H PRN for PAIN, #9 TAB Prov:LEGELY DONOVANS A. DO 01/13/19 Reported Medications Sitagliptin Phos/Metformin HCl (Janumet 50-500 mg Tablet) 1 Each Tablet, 1 EACH PO BID, TAB 01/13/19 Aspirin (Low Dose Aspirin) 81 Mg Tablet.dr, 81 MG PO DAILY, #30 TAB 01/13/19 Lansoprazole* (Lansoprazole*) 15 Mg Capsule.dr, 15 MG PO DAILY, CAP 01/13/19 Lisinopril* (Lisinopril*) 10 Mg Tablet, 10 MG PO DAILY, #30 TAB 01/13/19 Folic Acid* (Folic Acid*) 1 Mg Tablet, 1 MG PO DAILY, TAB 01/13/19 Tolterodine Tartrate* (Detrol LA*) 4 Mg Cap.sr.24h, 4 MG PO DAILY, #30 CAP 01/13/19 Meloxicam* (Mobic*) 15 Mg Tablet, 15 MG PO DAILY, #30 TAB 01/13/19 Levothyroxine Sodium* (Levoxyl*) 88 Mcg Tablet, 88 MCG PO BEFORE BREAKFAST, #30 TAB 01/13/19 Gabapentin* (Gabapentin*) 300 Mg Capsule, 300 MG PO TID, #90 CAP 01/13/19 Calcium Carbonate/Vitamin D3 (Oysco 500+D Tablet) 1 Each Tablet, 1 EACH PO BID, TAB 01/13/19 Amlodipine Besylate* (Norvasc*) 5 Mg Tablet, 5 MG PO DAILY, TAB 01/13/19 Allergies Allergies: Coded Allergies: No Known Drug Allergy (Verified Allergy, Unknown, 01/13/19) PMhx/Soc History of Surgery: Yes (partial thyroidectomy) Anesthesia Reaction: No Hx Neurological Disorder: No Hx Respiratory Disorders: Yes (blood clot in lungs) Hx Cardiac Disorders: Yes (HTN) Hx Psychiatric Problems: No Hx Miscellaneous Medical Probl: Yes (diabetes) Hx Alcohol Use: No Hx Substance Use: No Hx Tobacco Use: No Smoking Status: Never smoker FmHx Family History: No coronary disease Physical Exam Vitals Vital Signs Date Temp Pulse Resp B/P (MAP) Pulse Ox O2 O2 Flow FiO2 Time Delivery Rate 04/07/19 79 12 146/85 100 Room Air 02:00 (105) 04/06/19 98.4 89 20 134/66 97 21:08 (88) Physical Exam Const: Well-developed, well-nourished Head: Atraumatic, normocephalic Eyes: Normal Conjunctiva, PERRLA, EOMI, normal sclera, no nystagmus ENT: Normal External Ears, Nose and Mouth, moist mucus membranes. Neck: Full range of motion. No meningismus, no lymphadenopathy. Resp: Clear to auscultation bilaterally, no wheezing, rhonchi, rales, bilateral rib cage tenderness reproducible palpation along the mid axillary lower ribs bilaterally, there is also reproducible severe chest pain at the left costosternal margin of ribs 2,3,4, rotation of the trunk induces severe pain to this area as well Cardio: Regular rate and rhythm, no murmurs, S1 S2 present Abd: Soft, non tender x 4, non distended. Normal bowel sounds, no guarding or rebound, no pulsitile abdominal masses or bruits Skin: No petechiae or rashes, no ecchymosis , no maculopapular rash Back: No midline or flank tenderness Ext: No cyanosis, or edema, FROM x 4, normal inspection, neurovascularly intact x 4 Neur: Awake and alert, STR 5/5 x 4, sensation intact x 4, no focal findings, cerebellum intact Psych: Normal Mood and Affect Const: No acute distress Head: Atraumatic Eyes: Normal Conjunctiva ENT: Normal External Ears, Nose and Mouth. Neck: Full range of motion. No meningismus. Resp: Clear to auscultation bilaterally Cardio: Regular rate and rhythm, no murmurs Abd: Soft, non tender, non distended. Normal bowel sounds Skin: No petechiae or rashes Back: No midline or flank tenderness Ext: No cyanosis, or edema Neur: Awake and alert Psych: Normal Mood and Affect Results 24 hrs Laboratory Tests Test 04/07/19 01:32 Troponin I < 0.012 ng/ml Current Medications Medications Dose Sig/Jagjit Start Time Status Last (Trade) Ordered Route PRN Stop Time Admin Dose Reason Admin 1 tab ONCE ONCE 04/07/19 DC 04/07/19 Acetaminophen PO 01:30 01:38 / 04/07/19 01:31 Hydrocodone Bitart ([place] (10325)) Ibuprofen 800 mg ONCE ONCE 04/07/19 DC 04/07/19 (Motrin) PO 01:30 01:38 04/07/19 01:31 Procedures/[place] [id number] Radiology Main Line: [phone] DIAGNOSTIC IMAGING REPORT Patient: ROBERTO ALVAREZ : 1960 Age: 58 Sex: F MR #: [id number] DOS: 04/07/19 0117 Ordering MD: LETICIA CARY DO Location: E/R Room/Bed: PROCEDURE: Chest. CLINICAL INDICATION: Chest pain. TECHNIQUE: Single frontal view of the chest was obtained. COMPARISON: 01/13/2019. FINDINGS: The cardiac silhouette is within normal limits. The aortic arch is calcified. There is no focal consolidation, vascular congestion or pleural effusion. There is no pneumothorax. IMPRESSION: No evidence for active cardiopulmonary disease. Aortic atherosclerosis. .Alirio Pacheco MD, MD Date Time Electronically viewed and signed by .Alirio Pacheco MD, MD on 04/07/2019 02:34 .T/ CC: LETICIA CARY DO [id number] The patient's troponin is negative. Her symptoms are consistent with rib pain chest wall pain. Gave her warning signs to return. Her chest pain is musculoskeletal because of the nature of the pain in the location and its reproducibility with movement and palpation. Patient feels much better at this time, and vital signs are normal, symptoms have improved. I did give strict instructions to return to the ED if symptoms continue or worsen, patient will otherwise follow-up with primary care physician. Patient understood instructions and agreed to plan. Disclaimer: Inadvertent spelling and grammatical errors are likely due to EHR/dictation software use and do not reflect on the overall quality of patient care. Also, please note that the electronic time recorded on this note does not necessarily reflect the actual time of the patient encounter. Departure Diagnosis: Primary Impression: Costochondritis Additional Impression: Chest wall muscle strain Encounter type: initial encounter Qualified Codes: S29.011A - Strain of muscle and tendon of front wall of thorax, initial encounter Condition: Stable LETICIA CARY DO April 07, 2019 02:59
[2019-04-07] MEDS ORDERED: HYDR-4011 PO (03:00)
[2019-04-07] MEDS ORDERED: IBUP800T48 PO (03:00)
[2019-04-07 03:06] VITALS: BP 102/54; PULSE 73; RESP 13
== END 2019-04-07 03:09 | disposition home or self-care (01) ==
LOC: E/R 21:03
DX: M94.0 Chondrocostal junction syndrome [Tietze] (principal); I10 Essential (primary) hypertension; E11.9 Type 2 diabetes mellitus without complications; S29.011A Strain of muscle and tendon of front wall of thorax, initial encounter; X58.XXXA Exposure to other specified factors, initial encounter; Y92.9 Unspecified place or not applicable; Z79.82 Long term (current) use of aspirin; Z79.84 Long term (current) use of oral hypoglycemic drugs
CPT/HCPCS: 71045; 84484; 99284; Z7610

== ENCOUNTER 2019-05-08 17:26 | Emergency (ER) | payer BC ==
[~2019-05-08] VITALS: Ht 154.9 cm; Wt 85.2 kg
[~2019-05-08 17:26] MED LIST changes: +HYDR-4011 PO; +IBUP800T48 PO
[2019-05-08 17:31] VITALS: Ht 154.9 cm; Wt 85.2 kg
--- NOTE | 2019-05-08 19:23 | ERD ---
ER Documentation Chief Complaint Chief Complaint CHRONIC COUGH MORE THAN 6 MONTH HPI The patient is a 58-year-old female, presenting to the ER because of chronic cough for more than 6 months, it is worse for the last 4 days that made her unable to sleep. She denies fever, chills, nasal congestion, postnasal drip, neck pain, complains of chest discomfort with the cough, denies dyspnea, complains of abdominal pain with a cough, denies nausea, vomiting, dysuria, diarrhea. She does not smoke nor drink, denies any recent traveling Past medical history: Hypertension, diabetes mellitus, hypothyroidism, migraine, history of pulmonary embolism about a year ago, on Coumadin for 8 months currently taking aspirin Surgical history: Partial thyroidectomy ROS All systems reviewed and are negative except as per history of present illness. Medications Home Meds Active Scripts Benzonatate* (Tessalon Perle*) 100 Mg Capsule, 100 MG PO Q8H PRN for COUGH, #14 CAP Prov:SORAIDA COOK MD 05/08/19 Pantoprazole* (Protonix*) 40 Mg Tablet., 40 MG PO DAILY, #20 TAB Prov:SORAIDA COOK MD 05/08/19 Hydrocodone/Acetaminophen ([place] 5-325 Tablet) 1 Each Tablet, 1 TAB PO Q6H PRN for PAIN, #7 TAB Prov:JABIER CARYSTELENA Rodriguez. DO 04/07/19 Ibuprofen* (Motrin*) 800 Mg Tab, 800 MG PO Q6H PRN for PAIN AND OR ELEVATED TEMP, #30 TAB Prov:JABIER CARYSTOLOS A. DO 04/07/19 Ibuprofen* (Motrin*) 600 Mg Tab, 600 MG PO Q8, #30 TAB Prov:JABIER CARYSTALEJOS A. DO 01/13/19 Hydrocodone/Acetaminophen ([place] 10-325 Tablet) 1 Each Tablet, 1 TAB PO Q6H PRN for PAIN, #9 TAB Prov:JABIER CARYSTELENA Ruiz DO 01/13/19 Reported Medications Sitagliptin Phos/Metformin HCl (Janumet 50-500 mg Tablet) 1 Each Tablet, 1 EACH PO BID, TAB 01/13/19 Aspirin (Low Dose Aspirin) 81 Mg Tablet., 81 MG PO DAILY, #30 TAB 01/13/19 Lansoprazole* (Lansoprazole*) 15 Mg Capsule.dr, 15 MG PO DAILY, CAP 01/13/19 Lisinopril* (Lisinopril*) 10 Mg Tablet, 10 MG PO DAILY, #30 TAB 01/13/19 Folic Acid* (Folic Acid*) 1 Mg Tablet, 1 MG PO DAILY, TAB 01/13/19 Tolterodine Tartrate* (Detrol LA*) 4 Mg Cap.sr.24h, 4 MG PO DAILY, #30 CAP 01/13/19 Meloxicam* (Mobic*) 15 Mg Tablet, 15 MG PO DAILY, #30 TAB 01/13/19 Levothyroxine Sodium* (Levoxyl*) 88 Mcg Tablet, 88 MCG PO BEFORE BREAKFAST, #30 TAB 01/13/19 Gabapentin* (Gabapentin*) 300 Mg Capsule, 300 MG PO TID, #90 CAP 01/13/19 Calcium Carbonate/Vitamin D3 ([place] 500+D Tablet) 1 Each Tablet, 1 EACH PO BID, TAB 01/13/19 Amlodipine Besylate* (Norvasc*) 5 Mg Tablet, 5 MG PO DAILY, TAB 01/13/19 Allergies Allergies: Coded Allergies: No Known Drug Allergy (Verified Allergy, Unknown, 01/13/19) PMhx/Soc History of Surgery: Yes (partial thyroidectomy) Anesthesia Reaction: No Hx Neurological Disorder: No Hx Respiratory Disorders: Yes (blood clot in lungs) Hx Cardiac Disorders: Yes (HTN) Hx Psychiatric Problems: No Hx Miscellaneous Medical Probl: Yes (diabetes) Hx Alcohol Use: No Hx Substance Use: No Hx Tobacco Use: No Smoking Status: Never smoker Physical Exam Vitals Vital Signs Date Temp Pulse Resp B/P (MAP) Pulse Ox O2 O2 Flow FiO2 Time Delivery Rate 05/08/19 99.1 88 26 125/62 94 17:31 (83) Physical Exam Const: No acute distress. Head: Atraumatic. Eyes: Normal Conjunctiva. ENT: Normal External Ears, Nose and Mouth. Neck: Full range of motion. No meningismus. Resp: Clear to auscultation bilaterally. Cardio: Regular rate and rhythm. Abd: Soft, non distended, normal bowel sounds, non tender. Skin: No petechiae or rashes. Back: No midline or flank tenderness. Ext: No cyanosis, or edema. Neur: Awake and alert. No focal deficit Psych: Normal Mood and Affect. Result Diagram: 05/08/19191205/08/191912 Results 24 hrs Laboratory Tests Test 05/08/19 19:13 White Blood Count 7.6 10^3/ul Red Blood Count 4.28 10^6/ul Hemoglobin 13.0 g/dl Hematocrit 38.3 % Mean Corpuscular Volume 89.5 fl Mean Corpuscular Hemoglobin 30.4 pg Mean Corpuscular Hemoglobin Concent 33.9 g/dl Red Cell Distribution Width 13.0 % Platelet Count 228 10^3/UL Mean Platelet Volume 11.1 fl Immature Granulocytes % 0.700 % Neutrophils % 66.6 % Lymphocytes % 23.7 % Monocytes % 6.9 % Eosinophils % 1.7 % Basophils % 0.4 % Nucleated Red Blood Cells % 0.0 /100WBC Immature Granulocytes # 0.050 10^3/ul Neutrophils # 5.1 10^3/ul Lymphocytes # 1.8 10^3/ul Monocytes # 0.5 10^3/ul Eosinophils # 0.1 10^3/ul Basophils # 0.0 10^3/ul Nucleated Red Blood Cells # 0.0 10^3/ul Sodium Level 139 mmol/L Potassium Level 4.3 mmol/L Chloride Level 99 mmol/L Carbon Dioxide Level 29 mmol/L Anion Gap 11 Blood Urea Nitrogen 8 mg/dl Creatinine 0.58 mg/dl Est Glomerular Filtrat Rate mL/min > 60 mL/min Glucose Level 248 mg/dl Calcium Level 9.7 mg/dl Troponin I < 0.012 ng/ml Lipase 153 U/L Current Medications Medications Dose Sig/Jagjit Start Time Status Last (Trade) Ordered Route PRN Stop Time Admin Dose Reason Admin IV Flush 10 ml STK-MED 05/08/19 DC 05/08/19 (NS 10 ml) ONCE .ROUTE 20:26 20:46 05/08/19 20:27 Sodium 100 ml @ ud STK-MED 05/08/19 DC 05/08/19 Chloride ONCE .ROUTE 20:26 20:46 05/08/19 20:27 Iohexol 100 ml @ ud STK-MED 05/08/19 DC 05/08/19 ONCE .ROUTE 20:26 20:46 05/08/19 20:27 Procedures/MDM EKG: Read by emergency physician Rate/Rhythm: Normal Sinus Rhythm 86 beats/min QRS, ST, T-waves: No ST elevation, no T inversion, prolong QT Impression: Abnormal EKG [place] [address] Radiology Main Line: [phone] DIAGNOSTIC IMAGING REPORT Patient: ROBERTO ALVAREZ : 1960 Age: 58 Sex: F MR #: [id number] DOS: 05/08/191958 Ordering MD: SORAIDA COOK MD Location: [facility] Room/Bed: PROCEDURE: CTA Chest. CLINICAL INDICATION: Shortness of breath TECHNIQUE: The study was performed utilizing a multidetector CT scanner. Direct spiral 1 axial sections were obtained from the thoracic inlet to the upper abdomen with the use of 100 cc of [id number]-300 nonionic intravenous contrast material and reformatted at 3. Coronal, sagittal and 3-D angiographic reformations were obtained. The images were reviewed on a PACS workstation. CT D I 49 mCi Dose 694 mGy/cm Individualized dose optimization technique was used for the performance of this exam. This included 1. Automated exposure control. 2. Adjustment of the mA and / or kV according to the patient's size. 3. Use of iterative reconstruction technique. DICOM images are included COMPARISON: No prior studies are available for comparison. FINDINGS: There is no central or peripheral pulmonary embolism. Main pulmonary artery is not enlarged. Thoracic aorta is normal with no dissection or aneurysm. No lung infiltrate or mass is seen. There is no hilar or mediastinal adenopathy or mass. No pleural or pericardial effusion is visualized. There is no pneumothorax. No upper abdominal or adrenal mass is present. Liver is enlarged with fatty infiltration. The osseous structures appear normal. IMPRESSION: No pulmonary embolism. No thoracic aortic aneurysm or dissection. No pneumonia. Enlarged fatty liver. .Enzo Wright MD, MD Date Time Electronically viewed and signed by .Enzo Wright MD, on 05/08/2019 21:59 .A/ CC: SORAIDA COOK MD [id number] [place] [address] Radiology Main Line: [phone] DIAGNOSTIC IMAGING REPORT Patient: ROBERTO ALVAREZ : 1960 Age: 58 Sex: F MR #: [id number] DOS: 05/08/191901 Ordering MD: FATOU BOCANEGRA PA-C Location: [facility] Room/Bed: PROCEDURE: XR Chest, 1 View CLINICAL INDICATION: Chest pain. TECHNIQUE: Frontal view of the chest. COMPARISON: 11/18/2015. FINDINGS: LUNGS: Unremarkable. No consolidation. PLEURAL SPACE: Unremarkable. No pneumothorax. HEART: Unremarkable. No cardiomegaly. MEDIASTINUM: Unremarkable. BONES/JOINTS: Unremarkable. VASCULATURE: The thoracic aorta is tortuous and atherosclerotic. IMPRESSION: 1. No acute cardiopulmonary disease demonstrated. 2. There is no significant interval change from the previous study. RPTAT: [facility] Bonnie Mcgowan Physician Sole Conditioner Date Time Electronically viewed and signed by Bonnie Mcgowan Physician Sole Conditioner on 05/08/2019 20:36 RmC/ CC: FATOU BOCANEGRA PA-C [id number] [place] [address] Radiology Main Line: [phone] DIAGNOSTIC IMAGING REPORT Patient: ROBERTO ALVAREZ : 1960 Age: 58 Sex: F MR #: [id number] DOS: 05/08/191901 Ordering MD: FATOU BOCANEGRA PA-C Location: [facility] Room/Bed: PROCEDURE: US Abdomen Limited, Right Upper Quadrant CLINICAL INDICATION: Right upper quadrant pain. TECHNIQUE: Real-time ultrasound of the right upper quadrant with image documentation. COMPARISON: None FINDINGS: LIVER: Hepatomegaly and increased hepatic echotexture, consistent with hepa tic steatosis. No intrahepatic bile duct dilation. GALLBLADDER: Unremarkable. No gallstones. COMMON BILE DUCT: No biliary dilatation. The common duct measures 4.2 mm. No stones. PANCREAS: Unremarkable as visualized. RIGHT KIDNEY: Right kidney measures 12.2 cm in length. No stones. No hydronephrosis. IMPRESSION: 1. Hepatomegaly and increased hepatic echotexture, consistent with hepatic steatosis. 2. No gallstones. No biliary dilatation. RPTAT: [facility] Bonnie Mcgowan, Physician Sole Conditioner Date Time Electronically viewed and signed by Bonnie Mcgowan Physician Sole Conditioner on 05/08/2019 20:38 C/ CC: FATOU BOCANEGRA PA-C [id number] MEDICAL MAKING DECISION: The patient is a 58-year-old female, presenting with chronic cough of unclear etiology, is stable for outpatient follow-up The differential diagnoses considered include but are not limited to asthma, post nasal drip, GERD, COPD, pneumonia, pulmonary embolus, pleural effusion, congestive heart failure. Departure Diagnosis: Primary Impression: Chronic cough Additional Impression: Hepatic steatosis Condition: Good Comments She was discharged with Protonix and Tessalon I discussed the findings with the patient. I advised the patient to follow-up with the primary physician in about 2-3 days, sooner if needed and return if any concern. Disclaimer: Inadvertent spelling and grammatical errors are likely due to EHR/dictation software use and do not reflect on the overall quality of patient care. Also, please note that the electronic time recorded on this note does not necessarily reflect the actual time of the patient encounter. SORAIDA COOK MD May 08, 2019 19:23
[2019-05-08] MEDS ORDERED: SOD CHLORIDE 0.9% 100 ML ONE (20:26)
[2019-05-08] MEDS ORDERED: IOHEXOL 100 ML ONE (20:26)
[2019-05-08] MEDS ORDERED: PANT40TA3 PO (22:12)
[2019-05-08] MEDS ORDERED: BENZ-6 PO (22:13)
[2019-05-08 22:30] VITALS: BP 134/72; PULSE 78; RESP 17
== END 2019-05-08 22:30 | disposition home or self-care (01) ==
LOC: FTE 17:26
DX: R05 Cough (principal); K76.0 Fatty (change of) liver, not elsewhere classified; I10 Essential (primary) hypertension; E11.9 Type 2 diabetes mellitus without complications; E03.9 Hypothyroidism, unspecified; Z79.01 Long term (current) use of anticoagulants; Z79.82 Long term (current) use of aspirin; Z79.84 Long term (current) use of oral hypoglycemic drugs
CPT/HCPCS: 36415; 71045; 71275; 76705; 80048; 83690; 84484; 85025; 93005; 99285; Q9967; Z7610

== ENCOUNTER 2019-05-15 18:21 | Emergency (ER) | payer BC ==
[~2019-05-15] VITALS: Wt 98.0 kg
[~2019-05-15 18:21] MED LIST changes: +BENZ-6 PO; +PANT40TA3 PO
--- NOTE | 2019-05-15 19:00 | ERD ---
ER Documentation Chief Complaint Chief Complaint LEFT UPPER AP HPI 58-year-old female history of hypertension, diabetes, thyroid disease, costochondritis, chronic chest pain, and pulmonary embolism presents to the ED complaining of a 1 day history of moderate, sharp, nonradiating, left lower anterior chest/rib pain. Pain is exacerbated by movement and breathing. No other relieving or exacerbating factors. No shortness of breath, cough or hemoptysis. Denies abdominal pain, nausea vomiting. No other chest pain or palpitations. No fevers or chills. ROS All systems reviewed and are negative except as per history of present illness. Medications Home Meds Active Scripts Hydrocodone/Acetaminophen ([place] 5-325 Tablet) 1 Each Tablet, 1 TAB PO Q6H PRN for PAIN, #6 TAB Prov:NATHAN SILVERMAN MD 05/15/19 Benzonatate* (Tessalon Perle*) 100 Mg Capsule, 100 MG PO Q8H PRN for COUGH, #14 CAP Prov:SORAIDA COOK MD 05/08/19 Pantoprazole* (Protonix*) 40 Mg Tablet., 40 MG PO DAILY, #20 TAB Prov:SORAIDA COOK MD 05/08/19 Hydrocodone/Acetaminophen ([place] 5-325 Tablet) 1 Each Tablet, 1 TAB PO Q6H PRN for PAIN, #7 TAB Prov:JABIER CARYSTELENA Ruiz DO 04/07/19 Ibuprofen* (Motrin*) 800 Mg Tab, 800 MG PO Q6H PRN for PAIN AND OR ELEVATED TEMP, #30 TAB Prov:JABIER CARYSTELENA AJenise DO 04/07/19 Ibuprofen* (Motrin*) 600 Mg Tab, 600 MG PO Q8, #30 TAB Prov:JABIER CARYSTELENA Ruiz DO 01/13/19 Hydrocodone/Acetaminophen ([place] 10-325 Tablet) 1 Each Tablet, 1 TAB PO Q6H PRN for PAIN, #9 TAB Prov:JABIER CARYSTELENA AJenise DO 01/13/19 Reported Medications Sitagliptin Phos/Metformin HCl (Janumet 50-500 mg Tablet) 1 Each Tablet, 1 EACH PO BID, TAB 01/13/19 Aspirin (Low Dose Aspirin) 81 Mg Tablet., 81 MG PO DAILY, #30 TAB 01/13/19 Lansoprazole* (Lansoprazole*) 15 Mg Capsule.dr, 15 MG PO DAILY, CAP 01/13/19 Lisinopril* (Lisinopril*) 10 Mg Tablet, 10 MG PO DAILY, #30 TAB 01/13/19 Folic Acid* (Folic Acid*) 1 Mg Tablet, 1 MG PO DAILY, TAB 01/13/19 Tolterodine Tartrate* (Detrol LA*) 4 Mg Cap.sr.24h, 4 MG PO DAILY, #30 CAP 01/13/19 Meloxicam* (Mobic*) 15 Mg Tablet, 15 MG PO DAILY, #30 TAB 01/13/19 Levothyroxine Sodium* (Levoxyl*) 88 Mcg Tablet, 88 MCG PO BEFORE BREAKFAST, #30 TAB 01/13/19 Gabapentin* (Gabapentin*) 300 Mg Capsule, 300 MG PO TID, #90 CAP 01/13/19 Calcium Carbonate/Vitamin D3 ([place] 500+D Tablet) 1 Each Tablet, 1 EACH PO BID, TAB 01/13/19 Amlodipine Besylate* (Norvasc*) 5 Mg Tablet, 5 MG PO DAILY, TAB 01/13/19 Allergies Allergies: Coded Allergies: No Known Drug Allergy (Verified Allergy, Unknown, 01/13/19) PMhx/Soc Reviewed in chart. As per HPI. History of Surgery: Yes (partial thyroidectomy) Anesthesia Reaction: No Hx Neurological Disorder: No Hx Respiratory Disorders: Yes (blood clot in lungs) Hx Cardiac Disorders: Yes (HTN) Hx Psychiatric Problems: No Hx Miscellaneous Medical Probl: No Hx Alcohol Use: No Hx Substance Use: No Hx Tobacco Use: No Smoking Status: Never smoker FmHx No sudden cardiac Physical Exam Vitals Vital Signs Date Temp Pulse Resp B/P (MAP) Pulse Ox O2 O2 Flow FiO2 Time Delivery Rate 05/15/19 81 22 111/61 98 Room Air 20:16 (78) 05/15/19 98.0 89 18 137/68 99 18:24 (91) Physical Exam Const: Anxious, moderate distress due to pain. Head: Atraumatic Eyes: Normal Conjunctiva ENT: Normal External Ears, Nose and Mouth. Neck: Full range of motion. No meningismus. Resp: Clear to auscultation bilaterally Cardio: Regular rate and rhythm, no murmurs Chest Wall: Reproducible, left lower anterior rib tenderness. No ecchymosis or deformity. No skin changes or rash. No crepitus. Abd: Soft, obese, non tender, non distended. No rebound or guarding. Normal bowel sounds Skin: No petechiae or rashes Back: No midline or flank tenderness Ext: No cyanosis, or edema. No calf swelling or tenderness. Neur: Awake and alert Psych: Anxious but not depressed. Result Diagram: 05/15/19 1840 05/15/19 184 Results 24 hrs Laboratory Tests Test 05/15/19 18:40 White Blood Count 8.8 10^3/ul Red Blood Count 4.46 10^6/ul Hemoglobin 13.3 g/dl Hematocrit 39.7 % Mean Corpuscular Volume 89.0 fl Mean Corpuscular Hemoglobin 29.8 pg Mean Corpuscular Hemoglobin Concent 33.5 g/dl Red Cell Distribution Width 12.9 % Platelet Count 228 10^3/UL Mean Platelet Volume 11.7 fl Immature Granulocytes % 0.900 % Neutrophils % 68.4 % Lymphocytes % 23.3 % Monocytes % 5.8 % Eosinophils % 1.3 % Basophils % 0.3 % Nucleated Red Blood Cells % 0.0 /100WBC Immature Granulocytes # 0.080 10^3/ul Neutrophils # 6.0 10^3/ul Lymphocytes # 2.0 10^3/ul Monocytes # 0.5 10^3/ul Eosinophils # 0.1 10^3/ul Basophils # 0.0 10^3/ul Nucleated Red Blood Cells # 0.0 10^3/ul Prothrombin Time 12.5 Sec Prothrombin Time Ratio 1.0 INR International Normalized Ratio 0.92 Sodium Level 140 mmol/L Potassium Level 3.9 mmol/L Chloride Level 102 mmol/L Carbon Dioxide Level 28 mmol/L Anion Gap 10 Blood Urea Nitrogen 9 mg/dl Creatinine 0.64 mg/dl Est Glomerular Filtrat Rate mL/min > 60 mL/min Glucose Level 186 mg/dl Calcium Level 9.4 mg/dl Current Medications Medications Dose Sig/Jagjit Start Time Status Last (Trade) Ordered Route PRN Stop Time Admin Dose Reason Admin Ketorolac 15 mg ONCE STAT 05/15/19 DC 05/15/19 Tromethamine IM 19:02 19:14 (Toradol) 05/15/19 19:04 Procedures/MDM DOCUMENTS REVIEWED: ED nurse, extensive review of prior records including multiple ED visits most recently 05/08/2019 for similar complaints at which time a CT pulmonary angiogram was negative for pulmonary embolism. EKG: Time: 18:39. Sinus rhythm. Ventricular rate 84. Normal [place] and QRS. Nonspecific T wave changes. No acute ST elevation or depression. No ectopy. My Interpretation IMAGING: Chest AP portable. Cardiac silhouette is normal. The costophrenic angles are clear. No effusions or infiltrates. Aortic calcifications. No abnormalities of the bony thorax. My interpretation. REEXAMINATION/REEVALUATION: Time: 21:18. Doing well. Pain decreased. MEDICAL DECISION MAKIN-year-old female history of hypertension, diabetes, thyroid disease, costochondritis, chronic chest pain, and pulmonary embolism presents to the ED complaining of a 1 day history of moderate, sharp, nonradiating, left lower anterior chest/rib pain. CBC to evaluate for leukocytosis, anemia and thrombocytopenia is unremarkable. Chemistry reveals mild hyperglycemia but no acidosis, renal insufficiency or electrolyte abnormalities. Chest x-ray negative for pneumonia, pleural effusion or CHF. PT/INR was performed as the patient is on warfarin but INR is not therapeutic. EKG is negative for ischemia or dysrhythmia. Patient presents with reproducible left lower chest wall pain likely secondary to previously diagnosed costochondritis. No radiographic evidence of rib fractures. No signs of an underlying pulmonary process. Abdominal exam is completely benign and CT scann ing to evaluate for intra-abdominal process including bowel obstruction, appendicitis and diverticulitis is not indicated. Pain decreased with intravenous ketorolac. Stable for discharge with appropriate analgesics, precautionary instructions and outpatient follow-up as counseled. Counseled patient and family regarding diagnostic workup, diagnosis and need for followup. Understands to return to ED if symptoms recur, worsen or any other concerns. Departure Diagnosis: Primary Impression: Acute chest wall pain Additional Impression: Acute costochondritis Condition: Stable NATHAN SILVERMAN MD May 15, 2019 19:00
[2019-05-15] MEDS ORDERED: KETOROLAC 15 MG INJ IM STA (19:02)
[2019-05-15] MEDS ORDERED: HYDR-4011 PO (21:24)
[2019-05-15 21:48] VITALS: BP 134/75; PULSE 77; RESP 16
== END 2019-05-15 21:56 | disposition home or self-care (01) ==
LOC: E/R 18:21
DX: M94.0 Chondrocostal junction syndrome [Tietze] (principal); I10 Essential (primary) hypertension; E11.9 Type 2 diabetes mellitus without complications; Z79.82 Long term (current) use of aspirin; Z79.84 Long term (current) use of oral hypoglycemic drugs
CPT/HCPCS: 71045; 80048; 85025; 85610; 93005; 96372; 99285; J1885